=== PATIENT | female | born 1950 | race Asian ===

== ENCOUNTER 2021-04-12 19:59 | Emergency (ER) | payer OTHER ==
[~2021-04-12] VITALS: Ht 170.2 cm; Wt 127.0 kg
[2021-04-12 20:29] LABS: PLATELET COUNT 220 K/uL (152-353)
[2021-04-12 20:40] LABS: POTASSIUM 3.2 mmol/L (3.6-5.2)
[2021-04-12 21:00] VITALS: BP 103/56; TEMP 98.1
[2021-04-12] MEDS ORDERED: AMLODIPINE BESYLATE PO (21:48)
[2021-04-12] MEDS ORDERED: LIPITOR10 MG PO (21:49)
[2021-04-12] MEDS ORDERED: ASPIR-8181 MG PO (21:49)
[2021-04-12] MEDS ORDERED: DONE5TAB PO (21:52)
[2021-04-12] MEDS ORDERED: DOCU SOFT100 MG PO (21:52)
[2021-04-12] MEDS ORDERED: DULO30CA PO (21:54)
[2021-04-12] MEDS ORDERED: NEURONTIN 100M100 MG PO (21:55)
[2021-04-12] MEDS ORDERED: HYDROCODONE-ACE PO (21:57)
[2021-04-12] MEDS ORDERED: FURO40TA93 PO (21:58)
[2021-04-12] MEDS ORDERED: MELATONIN3 M1 PO (21:59)
[2021-04-12] MEDS ORDERED: LATANOPROST0.005 % OPTH (22:02)
[2021-04-12] MEDS ORDERED: OXYB5TAB64 PO (22:03)
[2021-04-12] MEDS ORDERED: POTASSIUM CHLO20 ME2 PO (22:04)
[2021-04-12] MEDS ORDERED: ALBUTEROL INH (22:06)
[2021-04-12] MEDS ORDERED: CARV3.12 PO (22:07)
[2021-04-12] MEDS ORDERED: SEROQUEL100 MG PO (22:09)
[2021-04-12] MEDS ORDERED: HALO5INJ3 INJ (22:15)
== END 2021-04-12 21:05 | disposition still patient (30) ==
LOC: ED 19:59
PROVIDERS: Hospitalist
DX: F22 Delusional disorders (principal); R45.1 Restlessness and agitation; F25.8 Other schizoaffective disorders; Z11.52 Encounter for screening for COVID-19; Z04.6 Encounter for general psychiatric examination, requested by authority; R53.1 Weakness
CPT/HCPCS: 80053; 81000; 85027; 87077; 87086; 87088; 87185; 87635; 93005; 99283; 99285; U0003